=== PATIENT | male | born 1975 | race Caucasian/White ===

== ENCOUNTER 2019-07-21 02:02 | Emergency (ER) | payer OTHER, SELFPAY ==
[2019-07-21 02:29] VITALS: BP 163/95; PULSE 98; RESP 20; TEMP 37; O2SAT 96; BMI 28.8
--- NOTE | 2019-07-21 02:29 | ED.GENADULT ---
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 Patient states that his symptoms started a couple days ago. He took some Tylenol on the improved. They are now worse than what they were before. No recent overseas travel. No recent antibiotic use. He is concerned about COVID-19. No known exposures however has had and travel to surrounding [place] Related Data Allergies Allergy/AdvReac Type Severity Reaction Status Date / Time No Known Drug Allergies Allergy Verified 07/21/19 02:36 Review of Systems Constitutional Constitutional: Denies fatigue, Reports fever(s) (Subjective) and Reports headache(s) ENT Ears, Nose, Mouth, and Throat: Reports headache(s) Cardiovascular Cardiovascular: Denies chest pain Respiratory Respiratory: Reports chest congestion and Reports cough Gastrointestinal Gastrointestinal: Denies abdominal pain and Denies vomiting Musculoskeletal Musculoskeletal: Denies myalgias and Denies arthralgias Integumentary/Breasts Skin/Breast: Denies lesions and Denies rash Neurologic Neurologic: Denies behavioral changes and Reports headache(s) Psychiatric Psychiatric: Denies behavioral changes Endocrine Endocrine: Denies fatigue Hematologic/Lymphatic Hematologic/Lymphatic: Denies easy bleeding and Denies easy bruising Patient History Medical History Healthy adult (Acute) Social History Smoking Status: Never smoker Exam Initial Vital Signs Initial Vital Signs: Vital Signs Temperature 98.6 F 07/21/19 02:29 Pulse Rate 98 H 07/21/19 02:29 Respiratory Rate 20 07/21/19 02:29 Blood Pressure 163/95 H 07/21/19 02:29 Pulse Oximetry 96 07/21/19 02:29 Const General: cooperative, comfortable and well developed Resp Effort & Inspection: normal respiratory effort Auscultation: clear to auscultation bilaterally Cardio Rate: regular rate Rhythm: regular rhythm Skin Lesions: no lesions Rashes: no rashes Neuro General: alert and awake Cognition: normal cognition Speech: speech normal Extrem General: normal to inspection and capillary refill normal Psych Appearance: grossly normal and well kempt Course Orders Ordered: ED Orders 07/21/19 02:20 Influenza A & B (PCR) Stat Vital Signs Vital signs: Vital Signs - 8 hr 07/21/19 02:29 07/21/19 03:51 Temperature 98.6 F 98.0 F Pulse Rate 98 H 88 Respiratory Rate 20 20 Blood Pressure 163/95 H 170/87 H Pulse Oximetry 96 95 Medical Decision Making Lab Data Lab results reviewed: Yes I reviewed the patient's lab results. Labs: Lab Results 07/21/19 Range/Units 02:20 Influenza A (RT-PCR) Flu a negative (NEGATIVE) Influenza B (RT-PCR) Flu b negative (NEGATIVE) MDM Narrative Medical decision making narrative: Nontoxic appearing, afebrile here in the ER. Does have URI like symptoms. Flu tests were negative. The COVID-19 test were sent. Patient was instructed to self quarantine in with this involves. He was instructed that we would contact him for the results and that this would take several days to result. Was given return precautions and follow-up instructions. He expressed understanding and agreement Discharge Plan Departure Patient Disposition: Home Clinical Impression: Upper respiratory infection Qualifiers: URI type: unspecified URI Qualified Code(s): J06.9 - Acute upper respiratory infection, unspecified Discharge Date/Time: 07/21/19 03:52 Instructions: DI for Viral Upper Respiratory Infection -- Adult Activity Restrictions/Additional Instructions: You were tested for COVID-19. This test can take upwards of 2 -7 days to return. We will call you for both positive and negative results. Until then we highly recommend that you self quarantine which includes avoiding contact with other individuals, staying within your own home. You can take Tylenol and/or ibuprofen for any fevers. Be sure to drink plenty of fluids. Contact your primary provider over the phone to let them know that your being tested. Return to the emergency department for any new or worsening symptoms Stand Alone Forms: Work Release Note
[2019-07-21 03:09] LABS: Influenza A - CEPHEID Flu A NEGATIVE (NEGATIVE); Influenza B - CEPHEID Flu B NEGATIVE (NEGATIVE)
[2019-07-21 03:51] VITALS: BP 170/87; PULSE 88; RESP 20; TEMP 36.7; O2SAT 95
[2019-07-27 23:02] LABS: COVID19 Sendout Not Detected (Not Detected)
== END 2019-07-21 03:52 | disposition home or self-care (01) ==
PROVIDERS: Emergency Provider Emergency Medicine
DX: J06.9 Acute upper respiratory infection, unspecified (principal)
CPT/HCPCS: 87502; 87635; 99281; 99282